=== PATIENT | male | born 1960 | race Two or more races ===

== ENCOUNTER → 2016-11-08 | Outpatient (CLI) | payer OTHER ==
[~2016-11-08] VITALS: Ht 182.9 cm; Wt 114.5 kg
[2016-11-08 13:13] VITALS: BP 153/88
== END | disposition home or self-care (01) ==
LOC: SRCNTR 12:57
PROVIDERS: ATTEND Internal Medicine
DX: R91.1 Solitary pulmonary nodule (principal)
CPT/HCPCS: G0463